=== PATIENT | female | born 1940 | race Caucasian/White ===

== ENCOUNTER 2019-08-11 10:37 | Emergency (ER) | payer MEDICARE, OTHER, SELFPAY ==
[2019-08-11 10:46] VITALS: BP 150/74; PULSE 88; RESP 20; TEMP 37.4; O2SAT 98
--- NOTE | 2019-08-11 10:58 | ED.URI ---
HPI - URI/Sore Throat General Chief Complaint: Upper Respiratory Infection Stated Complaint: cough/mucus/sore throat Time Seen by Provider: 08/11/19 10:59 Source: patient and RN notes reviewed Mode of arrival: ambulatory Limitations: no limitations History of Present Illness HPI Narrative: 78-year-old female presents with concern for cough, nasal drainage, sore throat, sinus congestion for 4 days. Reports she has been taking Claritin and Robitussin with little relief. Reports her grandson had strep throat. MD elicited complaint: cough and sore throat Related Data Home Medications Medication Instructions Recorded Confirmed acetaminophen [Tylenol] 08/11/19 loratadine [Claritin] 10 mg PO DAILY 08/11/19 08/11/19 bm-db-MC-vit J-fvtll-ptn-coQ10 cap PO 08/11/19 [Daily Multivitamin] Allergies Allergy/AdvReac Type Severity Reaction Status Date / Time terbinafine Allergy Intermediate Hives Verified 08/11/19 10:54 ciprofloxacin Allergy Unknown Abdominal Verified 08/11/19 10:54 Pain Sulfa (Sulfonamide Allergy Unknown Rash Verified 08/11/19 10:54 Antibiotics) Review of Systems Review of Systems: Narrative: CONSTITUTIONAL: Reports malaise, low-grade fever. EYES: Denies visual changes, redness, or discharge. ENT: Reports rhinorrhea, congestion, sore throat. Denies sinus pain, otalgia. CARDIOVASCULAR: Denies chest pain, palpitations, or edema. RESPIRATORY: Reports cough. Denies dyspnea. GASTROINTESTINAL: Denies abdominal pain, nausea, vomiting, diarrhea SKIN: Denies rash or itching. MUSCULOSKELETAL: Denies myalgia. NEUROLOGIC: Denies headache. All systems reviewed & are unremarkable except as noted in HPI and below PMFSH Family History Family History (Updated 01/20/19 @ 10:19 by DOCTOR UNKNOWN) Sibling Family history of osteoporosis Family history of arthritis Family history of diabetes mellitus in first degree relative Family history of Alzheimer's disease Family history of dementia Mother Family history of cataracts Family history of hearing loss Family history of malignant neoplasm Father Family history of cataracts Family history of congestive heart failure Family history of cardiovascular disease Family history of malignant neoplasm Grandparent Asthma Family history of hearing loss Social History Social History Smoking status: Former smoker Smoking end date: 06/04/76 Alcohol intake: never Comments At time of signature, agree with nursing past medical, surgical, social and family history. There is no relevant family history pertinent to the presenting complaint Exam Narrative: Exam Narrative: GENERAL: Well-appearing, well-nourished, and in no acute distress. HEAD: Normocephalic EYES: PERRLA, conjunctivae clear ENT: Nares clear, turbinates edematous and erythematous, clear discharge. Mucous membranes moist. TM pearly kimball with dull light reflex bilaterally; no tragal tenderness. Oropharynx not erythematous without lesions. Tonsils not enlarged and without exudate, no drooling, no hoarseness, no trismus, uvula midline. NECK: Supple. No lymphadenopathy CHEST: Clear to auscultation, breath sounds equal. No wheezing, rhonchi, rales, or stridor. No respiratory distress, speaks in full sentences. HEART: Regular rate and rhythm. No murmur heard. Normal peripheral pulses. SKIN: Warm, dry, no rash. NEURO: Alert and oriented x3. PSYCH: Normal mood and affect Course Course Emergency Course: Patient is aware of diagnosis, understands and agrees to treatment plan. Anticipatory guidance given. Patient agrees to follow-up as directed and is aware of reasons to seek care at the emergency department. Portions of this record may have been created with voice recognition software Vital Signs Vital signs: Vital Signs Temperature 99.4 F 08/11/19 10:46 Pulse Rate 88 08/11/19 10:46 Respiratory Rate 20 08/11/19 10:46 Blood Pressure 150/74 H 08/11/19 10:46 Pulse Oximetry 98
== END 2019-08-11 11:15 | disposition home or self-care (01) ==
PROVIDERS: Emergency Provider Nurse Practitioner; PCP Family Medicine
DX: J06.9 Acute upper respiratory infection, unspecified (principal); I10 Essential (primary) hypertension; Z96.652 Presence of left artificial knee joint; E03.9 Hypothyroidism, unspecified
CPT/HCPCS: 87081; 87880; 99213; G0463

== ENCOUNTER 2020-04-05 16:39 | Outpatient (CLI) | payer MEDICARE, OTHER, SELFPAY ==
--- NOTE | ~2020-04-05 | CT_ITS ---
EXAMINATION: CT lumbar spine wo con DATE: 04/05/2020 17:09 INDICATION: Low back pain. TECHNIQUE: Computed tomography (CT) of the lumbar spine was performed without intravenous contrast. A utomated exposure control and iterative reconstruction technique were employed. The dose-length produ ct was 790.95 mGy-cm. COMPARISON: None FINDINGS: There is a moderate-sized sliding hiatal hernia. 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 There is 3 mm retrolisthesis of L2 on L3. There is 11 degrees l evoscoliosis of lumbar spine. There is mild chronic anterior wedging of T11-L2 vertebral bodies. Ther e is mildly decreased disc height at L1-L2 and severely decreased disc height at L2-L3. The following disc levels are specifically discussed: L1-L2: The disc is bulging. There is mild right and moderate left facet joint osteoarthritis. There i s mild bilateral neural foraminal stenosis. There is mild central canal stenosis. L2-L3: The disc is bulging. There is severe bilateral facet joint osteoarthritis. There is moderate b ilateral neural foraminal stenosis. There is mild central canal stenosis. L3-L4: The disc is bulging. There is severe bilateral facet joint osteoarthritis. There is moderate b ilateral neural foraminal stenosis. There is moderate central canal stenosis. L4-L5: The disc is bulging. There is severe bilateral facet joint osteoarthritis. There is moderate b ilateral neural foraminal stenosis. There is severe central canal stenosis. L5-S1: The disc is bulging. There is severe bilateral facet joint osteoarthritis. There is moderate r ight and mild left neural foraminal stenosis. There is mild central canal stenosis. IMPRESSION: 1. Severe lumbar spondylosis. 2. Lumbar levoscoliosis. Reviewed, dictated and finalized at location A. [employer]
== END 2020-04-05 16:40 | disposition home or self-care (01) ==
PROVIDERS: PCP Family Medicine; Visit Provider Orthopaedic Surgery
DX: M47.896 Other spondylosis, lumbar region (principal)
CPT/HCPCS: 72131

== ENCOUNTER 2020-08-04 08:45 | Outpatient (CLI) | payer MEDICARE, OTHER, SELFPAY | END 2020-08-04 08:46 | disposition home or self-care (01) | LOC: ANHCOVIDVC 08:45 | PROVIDERS: PCP Family Medicine | DX: Z23 Encounter for immunization (principal) | CPT/HCPCS: 0001A; 91300 ==

== ENCOUNTER 2020-08-25 08:46 | Outpatient (CLI) | payer MEDICARE, OTHER, SELFPAY | END 2020-08-25 08:47 | disposition home or self-care (01) | LOC: ANHCOVIDVC 08:46 | PROVIDERS: PCP Family Medicine | DX: Z23 Encounter for immunization (principal) | CPT/HCPCS: 0002A; 91300 ==

== ENCOUNTER 2020-11-17 11:25 | Outpatient (CLI) | payer MEDICARE, OTHER, SELFPAY ==
--- NOTE | ~2020-11-17 | US_ITS ---
US thyroid INDICATION: Nontoxic multinodular goiter TECHNIQUE: Real-time sonographic images of the thyroid gland were obtained. COMPARISON: Comparison to ultrasound dated 09/29/2014 FINDINGS: The right thyroid lobe measures 4 x 1.3 x 1.3 cm. The left thyroid lobe measures 3.5 x 1.2 x 1 cm. There is normal echotexture and echogenicity throughout the thyroid gland. No discrete nodul es identified. Normal vascular flow is present. IMPRESSION: 1. Unremarkable thyroid ultrasound. Reviewed, dictated and finalized at location A.
== END 2020-11-17 11:26 | disposition home or self-care (01) ==
PROVIDERS: PCP Family Medicine; Visit Provider Family Medicine
DX: E04.2 Nontoxic multinodular goiter (principal)
CPT/HCPCS: 76536; 77063; 77067

== ENCOUNTER 2020-11-17 16:11 | Outpatient (CLI) | payer MEDICARE, OTHER, SELFPAY ==
--- NOTE | ~2020-11-17 | MM_ITS ---
EXAMINATION: MM screening erich BI w earl HISTORY: Screening mammogram, family history of breast cancer in her sister. TECHNIQUE: Craniocaudal and mediolateral oblique 3-D tomosynthesis images were obtained and synthetic 2-D images were generated. CAD analysis was submitted and interpreted. COMPARISON: 08/13/2018, 08/10/2017, 08/04/2016 BREAST PARENCHYMAL COMPOSITION: There are scattered areas of fibroglandular density. FINDINGS: There is no evidence of suspicious mass, calcification, or architectural distortion to sugg est malignancy in either breast. There has been no suspicious interval change. IMPRESSION: 1. No mammographic evidence of malignancy. 2. Recommend routine screening mammography while the patient remains in good health. BI-RADS Category 1: Negative Reviewed, dictated and finalized at location A. IMPRESSION: 1. No mammographic evidence of malignancy. 2. Recommend routine screening mammography while the patient remains in good he alth. BI-RADS Category 1: Negative
== END 2020-11-17 16:12 | disposition home or self-care (01) ==
LOC: ANHIMG 16:12
PROVIDERS: PCP Family Medicine; Visit Provider Family Medicine
DX: Z12.31 Encounter for screening mammogram for malignant neoplasm of breast (principal)
CPT/HCPCS: 77063; 77067

== ENCOUNTER 2022-01-17 19:34 | Day surgery (SDC) | payer MEDICARE, SELFPAY ==
[2022-01-17] VITALS (15 sets, daily range): BP systolic 86–199; BP diastolic 38–88; PULSE 56–90; RESP 11–21; TEMP 36.3; O2SAT 95–100
--- NOTE | 2022-01-17 21:22 | ECG_ITS ---
Measurements Intervals [place] Rate: 65 P: 30 [place]: 125 QRS: 12 QRSD: 86 T: 49 QT: 427 QTc: 445 Interpretive Statements SINUS RHYTHM NORMAL ECG NO PREVIOUS ECG AVAILABLE FOR COMPARISON Electronically Signed On 01-18-2022 10:44:59 CDT by Devan Mendiola M.D.
[2022-01-17] MEDS: GLUCAGON FOR INJ 1 MG VIAL IV PUSH (21:39)
--- NOTE | 2022-01-17 21:48 | ED.GENADULT ---
HPI - General Adult General Chief complaint: Unspecified Stated complaint: difficulty swallowing Time Seen by Provider: 01/17/22 20:53 Source: patient, RN notes reviewed and old records reviewed Mode of arrival: ambulatory Limitations: no limitations History of Present Illness HPI narrative: This is an 81 year old female with history of hypertension, dysphagia , esophageal dilatation who presents for evaluation of inability to swallow. Patient states she was able to eat breakfast without difficulty. She was eating lunch at noon today and she was only able to take few bites. She feels like food is stuck. She states if she tries to eat or drink anything she regurgitates it back up. She reports history of dysphagia and this happened 2-3 years ago. She denies sob now. Related Data Home Medications Medication Instructions Recorded Confirmed loratadine 10 mg tablet (Claritin) 10 mg PO DAILY 08/11/19 11/03/20 quwanilp-oja-ZZ 200 mcg-vit K 100 cap PO 08/11/19 11/03/20 mcg-lycop 500 [id number]-iclpvu-N62 capsule (Daily Multivitamin) acetaminophen 325 mg tablet 650 mg PO QID PRN pain 11/03/20 11/03/20 (Tylenol) Allergies Allergy/AdvReac Type Severity Reaction Status Date / Time terbinafine Allergy Intermediate Hives Verified 01/17/22 23:00 ciprofloxacin Allergy Unknown Abdominal Verified 01/17/22 23:00 Pain Sulfa (Sulfonamide Allergy Unknown Rash Verified 01/17/22 23:00 Antibiotics) Review of Systems Review of Systems: CONSTITUTIONAL: Denies fever, chills, or sweats. EYES: Denies visual changes, redness, or discharge. ENT: Denies rhinorrhea, congestion, sore throat, or otalgia. CARDIOVASCULAR: Denies chest pain, palpitations, or edema. RESPIRATORY: Denies cough or dyspnea. GASTROINTESTINAL: Denies abdominal pain, , or diarrhea. GENITOURINARY: Denies dysuria or hematuria. SKIN: Denies rash or itching. MUSCULOSKELETAL: Denies back pain, joint pain, or myalgia. NEUROLOGIC: Denies headache, numbness, or weakness. PSYCHIATRIC: Denies anxiety or depression. All systems reviewed & are unremarkable except as noted in HPI and below PMFSH Past Medical History Medical History Arthritis, lumbar spine Backache without radiation BMI 28.0-28.9,adult Dyslipidemia Environmental allergies Essential (primary) hypertension Food impaction of esophagus History of esophageal stricture Hypothyroidism (acquired) Multiple thyroid nodules Ulcer Unspecified osteoarthritis, unspecified site Vitamin D deficiency Surgical History Surgical History History of hernia repair 1950 - congenital inguinal hernia History of left hip replacement 2007 History of tonsillectomy and adenoidectomy 1957 History of total abdominal hysterectomy and bilateral salpingo-oophorectomy 2007 History of tubal ligation 1971 Family History Family History Sibling Family history of osteoporosis Family history of arthritis Family history of diabetes mellitus in first degree relative Family history of Alzheimer's disease Family history of dementia Mother Family history of cataracts Family history of hearing loss Family history of malignant neoplasm Father Family history of cataracts Family history of congestive heart failure Family history of cardiovascular disease Family history of malignant neoplasm Grandparent Asthma Family history of hearing loss Social History Social History Smoking status: Former smoker Smoking end date: 06/04/76 Alcohol intake: never Substance use: never Substance use type: does not use Gender identity (if verbalized by the patient): Female Exam Narrative: GENERAL: Well-appearing, well-nourished, and in no acute distress. HEAD: Normocephalic, atrauma
[2022-01-17] MEDS: NITROGLYCERIN SL 0.4 MG TABLET SUBLINGUAL (22:00)
--- NOTE | 2022-01-17 22:44 | WPDANESEPP ---
Anes - Eval Pre Procedure Procedure: EGD Date/Time: 01/17/22 22:44 Surgeon: Dominick Preop Diagnosis: Esophageal bolus Pre Op Diagnosis: difficulty swallowing Patient Data Age: 81 Gender: F Height: 1.65 m Weight: 70.3 kg Last Vital Signs Temp 97.3 F L 01/17/22 19:43 Pulse 90 01/17/22 19:43 Resp 16 01/17/22 19:43 BP 199/88 H 01/17/22 19:43 Pulse Ox 99 01/17/22 19:43 O2 Del Method Room Air 01/17/22 19:43 Allergies Allergy/AdvReac Type Severity Reaction Status Date / Time terbinafine Allergy Intermediate Hives Verified 01/17/22 19:47 ciprofloxacin Allergy Unknown Abdominal Verified 01/17/22 19:47 Pain Sulfa (Sulfonamide Allergy Unknown Rash Verified 01/17/22 19:47 Antibiotics) Home Medications Medication Instructions Recorded Confirmed Type loratadine 10 mg tablet (Claritin) 10 mg PO DAILY 08/11/19 11/03/20 History ndhlabwo-eal-UB 200 mcg-vit K 100 cap PO 08/11/19 11/03/20 History mcg-lycop 500 lrt-xauyjb-R12 capsule (Daily Multivitamin) acetaminophen 325 mg tablet 650 mg PO QID PRN pain 11/03/20 11/03/20 History (Tylenol) levothyroxine 112 mcg tablet 112 mcg PO DAILY #90 tabs 12/27/20 Rx lisinopril 40 mg tablet 40 mg PO DAILY #90 tabs 01/24/21 Rx ECG: SR Patient hx anesthesia problems: none Family hx anesthesia problems: none Results Review: All pre-operative results and documents have been reviewed as part of the pre-operative evaluation. [facility] Past Medical History Medical History Arthritis, lumbar spine Backache without radiation BMI 28.0-28.9,adult Dyslipidemia Environmental allergies Essential (primary) hypertension Food impaction of esophagus History of esophageal stricture Hypothyroidism (acquired) Multiple thyroid nodules Ulcer Unspecified osteoarthritis, unspecified site Vitamin D deficiency Surgical History Surgical History History of hernia repair 1950 - congenital inguinal hernia History of left hip replacement 2007 History of tonsillectomy and adenoidectomy 1958 History of total abdominal hysterectomy and bilateral salpingo-oophorectomy 2007 History of tubal ligation 1972 Family History Family History Sibling Family history of osteoporosis Family history of arthritis Family history of diabetes mellitus in first degree relative Family history of Alzheimer's disease Family history of dementia Mother Family history of cataracts Family history of hearing loss Family history of malignant neoplasm Father Family history of cataracts Family history of congestive heart failure Family history of cardiovascular disease Family history of malignant neoplasm Grandparent Asthma Family history of hearing loss Social History Social History Smoking status: Former smoker Smoking end date: 06/04/76 Alcohol intake: never Substance use: never Substance use type: does not use Gender identity (if verbalized by the patient): Female Exam Day of Procedure 01/17/22 22:44 Patient weight: overweight Lungs: clear to auscultation Airway: Mallampati scale Neurological: alert and oriented
[2022-01-17] MEDS: LACTATED RINGERS 1,000 ML 150 ML IV CONT (23:00)
--- NOTE | 2022-01-17 23:10 | PM.HPGS ---
History of Present Illness History of Present Illness Consent: Risks, benefits, and alternatives have been discussed and questions answered. Patient agrees to proceed with procedure. Chief complaint: difficulty swallowing Narrative: Chely Davis is a 81 year old female with history of dysphagia, had esophageal ring dilated in 2019, today food got stuck and is here Review of Systems Constitutional: Constitutional: Denies headache(s) and Denies weakness Eyes: Eyes: Denies blurry vision ENT: Reports Normal hearing present, Denies headache(s) and Denies neck pain Cardiovascular: Cardiovascular: Denies chest pain and Denies dyspnea Respiratory: Respiratory: Denies dyspnea Gastrointestinal: Gastrointestinal: Reports no additional gastrointestinal complaints Genitourinary: Genitourinary: Denies dysuria Musculoskeletal: Musculoskeletal: Denies neck pain Integumentary/Breasts: Skin/Breast: Denies dry skin Neurologic: Reports Normal hearing present, Denies headache(s) and Denies weakness Psychiatric: Psychiatric: Denies anxiety Endocrine: Endocrine: Denies change in body appearance Hematologic/Lymphatic: Hematologic/Lymphatic: Denies easy bleeding Allergic/Immunologic: Allergic/Immunologic: Denies urticaria PMFSH Past Medical History Medical History Arthritis, lumbar spine Backache without radiation BMI 28.0-28.9,adult Dyslipidemia Environmental allergies Essential (primary) hypertension Food impaction of esophagus History of esophageal stricture Hypothyroidism (acquired) Multiple thyroid nodules Ulcer Unspecified osteoarthritis, unspecified site Vitamin D deficiency Surgical History Surgical History History of hernia repair 1950 - congenital inguinal hernia History of left hip replacement 2007 History of tonsillectomy and adenoidectomy 1957 History of total abdominal hysterectomy and bilateral salpingo-oophorectomy 2007 History of tubal ligation 1971 Family History Family History Sibling Family history of osteoporosis Family history of arthritis Family history of diabetes mellitus in first degree relative Family history of Alzheimer's disease Family history of dementia Mother Family history of cataracts Family history of hearing loss Family history of malignant neoplasm Father Family history of cataracts Family history of congestive heart failure Family history of cardiovascular disease Family history of malignant neoplasm Grandparent Asthma Family history of hearing loss Social History Social History Smoking status: Former smoker Smoking end date: 06/04/76 Alcohol intake: never Substance use: never Substance use type: does not use Gender identity (if verbalized by the patient): Female Meds Home Medications and Allergies Home Medications Medication Instructions Recorded Confirmed Type loratadine 10 mg tablet (Claritin) 10 mg PO DAILY 08/11/19 11/03/20 History rorihoum-yew-KX 200 mcg-vit K 100 cap PO 08/11/19 11/03/20 History mcg-lycop 500 zdr-uloget-F16 capsule (Daily Multivitamin) acetaminophen 325 mg tablet 650 mg PO QID PRN pain 11/03/20 11/03/20 History (Tylenol) levothyroxine 112 mcg tablet 112 mcg PO DAILY #90 tabs 12/27/20 Rx lisinopril 40 mg tablet 40 mg PO DAILY #90 tabs 01/24/21 Rx Allergies Allergy/AdvReac Type Severity Reaction Status Date / Time terbinafine Allergy Intermediate Hives Verified 01/17/22 23:00 ciprofloxacin Allergy Unknown Abdominal Verified 01/17/22 23:00 Pain Sulfa (Sulfonamide Allergy Unknown Rash Verified 01/17/22 23:00 Antibiotics) Vital Signs Vital Signs - 24 hr 01/17/22 19:43 01/17/22 21:37 01/17/22 21:38 Temperature 97.3 F L Pulse Rate 90 68 73 Respirator
--- NOTE | 2022-01-17 23:11 | WPDANESEPPF ---
Anes - Initial Pre Proc Eval Procedure: Operation Date: 01/17/22 23:00 Proposed Procedures p Esophagogastroduodenoscopy - Hever Dixon MD Date/Time: 01/17/22 23:11 Surgeon: Hever Dixon MD Pre Op Diagnosis: difficulty swallowing Patient Data Age: 81 Gender: F Height: 1.65 m Weight: 70.3 kg Last Vital Signs Temp 36.3 C L 01/17/22 19:43 Pulse 56 L 01/17/22 22:57 Resp 11 L 01/17/22 22:57 BP 153/77 H 01/17/22 22:57 Pulse Ox 99 01/17/22 22:57 O2 Del Method Room Air 01/17/22 19:43 Allergies Allergy/AdvReac Type Severity Reaction Status Date / Time terbinafine Allergy Intermediate Hives Verified 01/17/22 23:00 ciprofloxacin Allergy Unknown Abdominal Verified 01/17/22 23:00 Pain Sulfa (Sulfonamide Allergy Unknown Rash Verified 01/17/22 23:00 Antibiotics) Home Medications Medication Instructions Recorded Confirmed Type loratadine 10 mg tablet (Claritin) 10 mg PO DAILY 08/11/19 11/03/20 History yrgaqnuv-hfc-GK 200 mcg-vit K 100 cap PO 08/11/19 11/03/20 History mcg-lycop 500 mfd-coljgz-Q22 capsule (Daily Multivitamin) acetaminophen 325 mg tablet 650 mg PO QID PRN pain 11/03/20 11/03/20 History (Tylenol) levothyroxine 112 mcg tablet 112 mcg PO DAILY #90 tabs 12/27/20 Rx lisinopril 40 mg tablet 40 mg PO DAILY #90 tabs 01/24/21 Rx Patient hx anesthesia problems: none Family hx anesthesia problems: none Results Review: All pre-operative results and documents have been reviewed as part of the pre-operative evaluation. [facility] Past Medical History Medical History Arthritis, lumbar spine Backache without radiation BMI 28.0-28.9,adult Dyslipidemia Environmental allergies Essential (primary) hypertension Food impaction of esophagus History of esophageal stricture Hypothyroidism (acquired) Multiple thyroid nodules Ulcer Unspecified osteoarthritis, unspecified site Vitamin D deficiency Surgical History Surgical History History of hernia repair 1950 - congenital inguinal hernia History of left hip replacement 2007 History of tonsillectomy and adenoidectomy 1957 History of total abdominal hysterectomy and bilateral salpingo-oophorectomy 2007 History of tubal ligation 1972 Family History Family History Sibling Family history of osteoporosis Family history of arthritis Family history of diabetes mellitus in first degree relative Family history of Alzheimer's disease Family history of dementia Mother Family history of cataracts Family history of hearing loss Family history of malignant neoplasm Father Family history of cataracts Family history of congestive heart failure Family history of cardiovascular disease Family history of malignant neoplasm Grandparent Asthma Family history of hearing loss Social History Social History Smoking status: Former smoker Smoking end date: 06/04/76 Alcohol intake: never Substance use: never Substance use type: does not use Gender identity (if verbalized by the patient): Female Anes - Eval Final PreProcedure Day of Procedure 01/17/22 23:11 Patient weight: overweight Heart: regular rate and rhythm Lungs: clear to auscultation Airway: Mallampati scale class II Neurological: other (alert) ASA classification: III Emergent: yes Anesthetic plan: proceed Anesthesia type and monitoring: general GIVS and standard monitoring Results Review: All pre-operative results and documents have been reviewed as part of the pre-operative evaluation. Informed Consent: The patient's anesthetic plan and its attendant risks and benefits were discussed with the patient/family/POA. Questions were solicited and answers provided to the satisfaction of
== END 2022-01-18 00:01 | disposition home or self-care (01) ==
LOC: ANHED 22:02 → ANHENDO 22:06
PROVIDERS: Emergency Provider General Practice; Visit Provider Internal Medicine Gastroenterology
PROC: 0DJ08ZZ Inspection of Upper Intestinal Tract, Via Natural or Artificial Opening Endoscopic (ICD-10-PCS; CPT 43235; principal; 2022-01-17 23:00)
DX: T18.128A Food in esophagus causing other injury, initial encounter (principal); K22.4 Dyskinesia of esophagus; K44.9 Diaphragmatic hernia without obstruction or gangrene; K22.2 Esophageal obstruction; I10 Essential (primary) hypertension; E03.9 Hypothyroidism, unspecified; E78.5 Hyperlipidemia, unspecified; E55.9 Vitamin D deficiency, unspecified; M19.90 Unspecified osteoarthritis, unspecified site; Z87.891 Personal history of nicotine dependence
CPT/HCPCS: 43247; 43249; 93005; A9270; C1726; J1610; J2704; J7120